=== PATIENT | female | born 1995 | race Caucasian/White ===

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

== ENCOUNTER 2017-01-19 19:45 | Emergency (ER) | payer MEDICAID ==
[~2017-01-19] VITALS: Ht 165.1 cm; Wt 108.6 kg
[2017-01-19 20:35] LABS: HCG UR LOT HCG7030192
[2017-01-19 20:42] LABS: PATH.CAST-FLAG NOT PRESENT; SPERM-FLAG NOT PRESENT; SRC-FLAG NOT PRESENT; XTAL-FLAG NOT PRESENT; YLC-FLAG NOT PRESENT
[2017-01-19 20:43] LABS: HCG UR OBC PASS
[2017-01-19] MEDS ORDERED: CEFTRIAXONE 250 MG IM ONE (21:00)
[2017-01-19] MEDS ORDERED: AZITHROMYCIN 500 MG TABLET PO ONE (21:00)
[2017-01-19] MEDS ORDERED: AZITHROMYCIN 500 MG TABLET ONE (21:10)
[2017-01-19 21:29] VITALS: BP 115/66
== END 2017-01-19 21:30 | disposition home or self-care (01) ==
LOC: ED 20:35
DX: A59.01 Trichomonal vulvovaginitis (principal)
CPT/HCPCS: 81001; 81025; 87086; 87210; 87491; 87591; 87808; 96372; 99284; J0696

== ENCOUNTER 2017-01-22 12:15 | Emergency (ER) | payer MEDICAID ==
[~2017-01-22] VITALS: Ht 165.1 cm; Wt 108.2 kg
[2017-01-22 12:20] VITALS: BP 112/72
== END 2017-01-22 13:24 | disposition home or self-care (01) ==
LOC: ED 12:30
DX: A60.00 Herpesviral infection of urogenital system, unspecified (principal); E66.9 Obesity, unspecified
CPT/HCPCS: 99283

== ENCOUNTER 2017-05-07 16:02 | Emergency (ER) | payer MEDICAID ==
[~2017-05-07] VITALS: Ht 165.1 cm; Wt 104.5 kg
[2017-05-07 16:03] VITALS: BP 113/83
[2017-05-07] MEDS ORDERED: DIAZEPAM 5 MG TABLET ONE (16:30)
[2017-05-07] MEDS ORDERED: DIAZEPAM 5 MG TABLET PO ONE (16:30)
[2017-05-07] MEDS ORDERED: IBUPROFEN 200 MG TABLET PO ONE (16:30)
[2017-05-07] MEDS ORDERED: IBUPROFEN 200 MG TABLET ONE (16:30)
== END 2017-05-07 17:11 | disposition home or self-care (01) ==
LOC: ED 17:00
DX: S39.012A Strain of muscle, fascia and tendon of lower back, initial encounter (principal); E66.9 Obesity, unspecified; W01.0XXA Fall on same level from slipping, tripping and stumbling without subsequent striking against object, initial encounter; Y93.89 Activity, other specified; Y92.89 Other specified places as the place of occurrence of the external cause; Y99.8 Other external cause status
CPT/HCPCS: 72110; 99284

== ENCOUNTER 2017-06-06 14:08 | Emergency (ER) | payer MEDICAID, OTHER ==
[~2017-06-06] VITALS: Ht 167.6 cm; Wt 116.7 kg
[2017-06-06 14:09] VITALS: BP 114/76
== END 2017-06-06 15:11 | disposition home or self-care (01) ==
LOC: ED 15:02
DX: B34.9 Viral infection, unspecified (principal)
CPT/HCPCS: 71046; 93005; 99284

== ENCOUNTER 2017-07-05 11:10 | Emergency (ER) | payer MEDICAID, OTHER ==
[~2017-07-05] VITALS: Ht 165.1 cm; Wt 118.7 kg
[2017-07-05 11:13] VITALS: BP 119/79
== END 2017-07-05 12:49 | disposition home or self-care (01) ==
LOC: ED 12:20
DX: S93.492A Sprain of other ligament of left ankle, initial encounter (principal); X50.1XXA Overexertion from prolonged static or awkward postures, initial encounter; Y93.89 Activity, other specified; Y92.099 Unspecified place in other non-institutional residence as the place of occurrence of the external cause; Y99.8 Other external cause status
CPT/HCPCS: 99284

== ENCOUNTER 2017-11-02 22:33 | Emergency (ER) | payer MEDICAID ==
[~2017-11-02] VITALS: Ht 165.1 cm; Wt 129.1 kg
[2017-11-02 22:36] VITALS: BP 128/81
[2017-11-02 23:18] LABS: BASOPHILS # (AUTO) 0.05 x10^3/uL (0-0.3); BASOPHILS % (AUTO) 1 % (0-1); EOSINOPHILS % (AUTO) 1 % (1-7); LYMPHOCYTES # (AUTO) 2.89 x10^3/uL (1-6.1); LYMPHOCYTES % (AUTO) 28 % (22-44); MD NO; MEAN CORPUSCULAR HEMOGLOBIN 25.9 pg (27.0-34.8); MEAN CORPUSCULAR VOLUME 78.3 fL (80-100); MONOCYTES # (AUTO) 0.68 x10^3/uL (0-1.4); MONOCYTES % (AUTO) 7 % (2-9); NEUTROPHILS # (AUTO) 6.62 x10^3/uL (1.8-8.0); NEUTROPHILS % (AUTO) 64 % (42-75); PLATELET COUNT 305 x10^3/uL (130-400); RED CELL DISTRIBUTION WIDTH 14.5 % (9.6-15.2)
[2017-11-02 23:25] LABS: ALANINE AMINOTRANSFERASE 22 U/L (12-78); ALBUMIN 3.1 g/dL (3.4-5.0); ANION GAP 6 mmol/L (5-15); CALCIUM 8.4 mg/dL (8.5-10.1); CHLORIDE 109 mmol/L (98-107)
[2017-11-02 23:30] LABS: ALKALINE PHOSPHATASE 75 U/L (45-117); BILIRUBIN,TOTAL 0.3 mg/dL (0.2-1.0); TOTAL PROTEIN 6.7 g/dL (6.4-8.2)
[2017-11-02 23:44] LABS: MICROSCOPIC NOT IND
[2017-11-02 23:47] LABS: CULTURE INDICATED? NO
== END 2017-11-03 02:02 | disposition home or self-care (01) ==
LOC: ED 11-03 01:08
DX: O26.891 Other specified pregnancy related conditions, first trimester (principal); R10.30 Lower abdominal pain, unspecified; E66.01 Morbid (severe) obesity due to excess calories; Z3A.01 Less than 8 weeks gestation of pregnancy; Z86.718 Personal history of other venous thrombosis and embolism; Z90.89 Acquired absence of other organs; Z68.42 Body mass index [BMI] 45.0-49.9, adult
CPT/HCPCS: 36415; 76830; 80053; 81003; 84702; 84703; 85025; 99285

== ENCOUNTER 2017-12-30 21:24 | Emergency (ER) | payer MEDICAID ==
[~2017-12-30] VITALS: Ht 165.1 cm; Wt 127.8 kg
[2017-12-30 21:49] LABS: BASOPHILS # (AUTO) 0.03 x10^3/uL (0-0.3); BASOPHILS % (AUTO) 0 % (0-1); EOSINOPHILS # (AUTO) 0.09 x10^3/uL (0-0.8); EOSINOPHILS % (AUTO) 1 % (1-7); LYMPHOCYTES # (AUTO) 2.78 x10^3/uL (1-6.1); LYMPHOCYTES % (AUTO) 25 % (22-44); MD NO; MEAN CORPUSCULAR HGB CONC 33.5 g/dL (32.4-35.8); MEAN CORPUSCULAR VOLUME 77.5 fL (80-100); MEAN PLATELET VOLUME 9.5 fL (7.4-10.4); MONOCYTES # (AUTO) 0.66 x10^3/uL (0-1.4); MONOCYTES % (AUTO) 6 % (2-9); NEUTROPHILS % (AUTO) 68 % (42-75); PLATELET COUNT 270 x10^3/uL (130-400); RED BLOOD COUNT 4.84 x10^6/uL (3.82-5.3); RED CELL DISTRIBUTION WIDTH 16.9 % (9.6-15.2)
[2017-12-30 22:00] LABS: ALBUMIN 3.3 g/dL (3.4-5.0); ANION GAP 9 mmol/L (5-15); CHLORIDE 108 mmol/L (98-107); CREATININE 0.71 mg/dL (0.55-1.02)
[2017-12-30 22:17] LABS: CULTURE INDICATED? YES; MICROSCOPIC INDICATED
[2017-12-30 22:18] VITALS: BP 124/78
== END 2017-12-30 23:18 | disposition home or self-care (01) ==
LOC: ED 21:57
DX: O26.891 Other specified pregnancy related conditions, first trimester (principal); Z3A.12 12 weeks gestation of pregnancy; Z86.718 Personal history of other venous thrombosis and embolism
CPT/HCPCS: 36415; 76801; 80048; 81001; 82040; 84702; 85025; 87086; 99285

== ENCOUNTER 2018-02-04 18:19 | Emergency (ER) | payer MEDICAID ==
[~2018-02-04] VITALS: Ht 165.1 cm; Wt 123.0 kg
[2018-02-04 19:34] LABS: BASOPHILS # (AUTO) 0.04 x10^3/uL (0-0.3); BASOPHILS % (AUTO) 0 % (0-1); EOSINOPHILS # (AUTO) 0.08 x10^3/uL (0-0.8); EOSINOPHILS % (AUTO) 1 % (1-7); LYMPHOCYTES # (AUTO) 1.88 x10^3/uL (1-6.1); LYMPHOCYTES % (AUTO) 20 % (22-44); MD NO; MEAN CORPUSCULAR HEMOGLOBIN 26.6 pg (27.0-34.8); MEAN CORPUSCULAR HGB CONC 33.9 g/dL (32.4-35.8); MEAN CORPUSCULAR VOLUME 78.4 fL (80-100); MEAN PLATELET VOLUME 10.7 fL (7.4-10.4); MONOCYTES # (AUTO) 0.56 x10^3/uL (0-1.4); MONOCYTES % (AUTO) 6 % (2-9); NEUTROPHILS # (AUTO) 6.78 x10^3/uL (1.8-8.0); NEUTROPHILS % (AUTO) 73 % (42-75); PLATELET COUNT 235 x10^3/uL (130-400); RED BLOOD COUNT 4.89 x10^6/uL (3.82-5.3); RED CELL DISTRIBUTION WIDTH 16.4 % (9.6-15.2)
[2018-02-04 19:49] LABS: ALBUMIN 3.1 g/dL (3.4-5.0); ANION GAP 9 mmol/L (5-15); CALCIUM 9.2 mg/dL (8.5-10.1); CHLORIDE 106 mmol/L (98-107); CREATININE 0.69 mg/dL (0.55-1.02)
[2018-02-04 20:23] VITALS: BP 121/71
== END 2018-02-04 21:02 | disposition home or self-care (01) ==
LOC: ED 20:51
DX: O20.0 Threatened abortion (principal); Z86.718 Personal history of other venous thrombosis and embolism
CPT/HCPCS: 36415; 76815; 80048; 82040; 84702; 85025; 86901; 99284; 99285

== ENCOUNTER 2018-03-04 19:18 | Outpatient (CLI) | payer MEDICAID ==
[~2018-03-04] VITALS: Ht 165.1 cm; Wt 122.9 kg
[2018-03-04 20:12] LABS: MICROSCOPIC AUTO
== END 2018-03-04 21:30 | disposition home or self-care (01) ==
LOC: LDOP 19:18
PROVIDERS: ATTEND Obstetrics & Gynecology
DX: O26.892 Other specified pregnancy related conditions, second trimester (principal); R10.9 Unspecified abdominal pain; Z3A.18 18 weeks gestation of pregnancy
CPT/HCPCS: 59025; 76770; 76815; 81001; 87086; 99201; G0463

== ENCOUNTER 2018-04-04 06:11 | Emergency (ER) | payer MEDICAID ==
[~2018-04-04] VITALS: Ht 165.1 cm; Wt 125.7 kg
--- NOTE | 2018-04-04 06:35 | NUR ---
L[facility]D MARBIN WREN CAME TO ASSESS PT.
[2018-04-04] MEDS ORDERED: PREN1TAB10 PO (06:38)
[2018-04-04 06:55] VITALS: BP 121/67
== END 2018-04-04 07:04 | disposition home or self-care (01) ==
LOC: ED 06:57
DX: J20.8 Acute bronchitis due to other specified organisms (principal); B97.89 Other viral agents as the cause of diseases classified elsewhere; Z86.718 Personal history of other venous thrombosis and embolism; O99.512 Diseases of the respiratory system complicating pregnancy, second trimester; Z3A.26 26 weeks gestation of pregnancy
CPT/HCPCS: 99281

== ENCOUNTER 2018-05-05 15:31 | Observation (INO) | payer MEDICAID ==
[~2018-05-05] VITALS: Ht 165.1 cm; Wt 124.5 kg
[~2018-05-05 15:31] MED LIST: PREN1TAB10 PO
[2018-05-05 15:49] VITALS: BP 121/68
== END 2018-05-05 23:20 | disposition home or self-care (01) ==
LOC: LDOP 15:31 → LDIP 17:40
PROVIDERS: ADMIT Obstetrics & Gynecology; ATTEND Obstetrics & Gynecology
DX: O36.8130 Decreased fetal movements, third trimester, not applicable or unspecified (principal); Z3A.30 30 weeks gestation of pregnancy
CPT/HCPCS: 59025; 76805; 76819; 81003; G0378

== ENCOUNTER 2018-05-12 20:04 | Outpatient (CLI) | payer MEDICAID ==
[~2018-05-12] VITALS: Ht 165.1 cm; Wt 125.9 kg
[2018-05-12 20:15] VITALS: BP 133/81
[2018-05-12 20:40] LABS: MICROSCOPIC INDICATED
[2018-05-12] MEDS ORDERED: TERBUTALINE 1 MG/ML, 1ML ONE (20:56)
[2018-05-12] MEDS ORDERED: TERBUTALINE 1 MG/ML, 1ML SQ PRN (21:00)
== END 2018-05-12 23:15 | disposition home or self-care (01) ==
LOC: LDOP 20:04
PROVIDERS: ATTEND Obstetrics & Gynecology
DX: O26.893 Other specified pregnancy related conditions, third trimester (principal); R10.9 Unspecified abdominal pain; Z3A.31 31 weeks gestation of pregnancy
CPT/HCPCS: 59025; 81001; 87086; 96372; 99211; J3105; G0463

== ENCOUNTER 2018-05-23 11:40 | Outpatient (CLI) | payer MEDICAID ==
[~2018-05-23] VITALS: Ht 165.1 cm; Wt 127.7 kg
[2018-05-23 12:54] VITALS: BP 121/63
== END 2018-05-23 13:25 | disposition home or self-care (01) ==
LOC: LDOP 11:40
PROVIDERS: ATTEND Obstetrics & Gynecology
DX: O36.5930 Maternal care for other known or suspected poor fetal growth, third trimester, not applicable or unspecified (principal); Z3A.33 33 weeks gestation of pregnancy
CPT/HCPCS: 59025; 76819; 99211; G0463

== ENCOUNTER 2018-06-22 16:24 | Outpatient (CLI) | payer MEDICAID ==
[~2018-06-22] VITALS: Ht 165.1 cm; Wt 125.0 kg
[2018-06-22 18:54] LABS: MICROSCOPIC INDICATED
[2018-06-30] MEDS ORDERED: OXYC-302 PO (13:35)
[2018-06-30] MEDS ORDERED: IBUP-1222 PO (13:35)
[2018-06-30] MEDS ORDERED: SENN-52 PO (13:36)
[2018-06-30] MEDS ORDERED: SIME80TA15 PO (13:37)
[2018-06-30] MEDS ORDERED: FERR324T18 PO (13:37)
== END 2018-06-22 19:58 | disposition home or self-care (01) ==
LOC: LDOP 16:24
PROVIDERS: ATTEND Obstetrics & Gynecology
DX: O26.892 Other specified pregnancy related conditions, second trimester (principal); R10.9 Unspecified abdominal pain; Z3A.37 37 weeks gestation of pregnancy
CPT/HCPCS: 59025; 81001; 99211; G0463

== ENCOUNTER 2018-06-24 09:03 | Observation (INO) | payer MEDICAID ==
[~2018-06-24] VITALS: Ht 165.1 cm; Wt 125.0 kg
[2018-06-24 09:30] VITALS: BP 121/68
[2018-06-24 09:56] LABS: AMPHETAMINE SCREEN, URINE Negative (Negative); BARBITURATE SCREEN, URINE Negative (Negative); BENZODIAZEPINE SCREEN, URINE Negative (Negative); CANNABINOID SCREEN, URINE Negative (Negative); COCAINE SCREEN, URINE Negative (Negative); METHADONE SCREEN, URINE Negative (Negative); OPIATE SCREEN, URINE Negative (Negative)
[2018-06-24 10:00] LABS: MICROSCOPIC INDICATED
[2018-06-24 11:28] LABS: ALANINE AMINOTRANSFERASE 13 U/L (12-78); ALBUMIN 2.5 g/dL (3.4-5.0); ANION GAP 10 mmol/L (5-15); CALCIUM 8.8 mg/dL (8.5-10.1); CHLORIDE 108 mmol/L (98-107); CREATININE 0.73 mg/dL (0.55-1.02)
[2018-06-24 11:30] LABS: BILIRUBIN, DIRECT < 0.1 mg/dL (0.1-0.2)
[2018-06-24 11:34] LABS: ALKALINE PHOSPHATASE 197 U/L (45-117); BILIRUBIN,TOTAL 0.2 mg/dL (0.2-1.0); TOTAL PROTEIN 6.5 g/dL (6.4-8.2)
[2018-06-24 11:53] LABS: BASOPHILS # (AUTO) 0.02 x10^3/uL (0-0.1); BASOPHILS % (AUTO) 0 % (0-1); EOSINOPHILS # (AUTO) 0.03 x10^3/uL (0-0.4); EOSINOPHILS % (AUTO) 0 % (1-7); LYMPHOCYTES # (AUTO) 1.62 x10^3/uL (1-3.4); LYMPHOCYTES % (AUTO) 20 % (22-44); MD SCAN; MEAN CORPUSCULAR HEMOGLOBIN 23.4 pg (27.0-34.8); MEAN CORPUSCULAR HGB CONC 31.9 g/dL (32.4-35.8); MEAN CORPUSCULAR VOLUME 73.3 fL (80-100); MEAN PLATELET VOLUME 11.7 fL (7.4-10.4); MONOCYTES # (AUTO) 0.56 x10^3/uL (0.2-0.8); MONOCYTES % (AUTO) 7 % (2-9); NEUTROPHILS # (AUTO) 5.79 x10^3/uL (1.8-6.8); NEUTROPHILS % (AUTO) 72 % (42-75); PLATELET COUNT 210 x10^3/uL (130-400); RED CELL DISTRIBUTION WIDTH 15.6 % (9.6-15.2)
[2018-06-24] MEDS ORDERED: VALA500T4 PO (12:12)
== END 2018-06-24 12:27 | disposition home or self-care (01) ==
LOC: LDOP 09:03 → LDIP 09:04
PROVIDERS: ADMIT Obstetrics & Gynecology Maternal & Fetal Medicine; ATTEND Obstetrics & Gynecology Maternal & Fetal Medicine
DX: O62.9 Abnormality of forces of labor, unspecified (principal); Z3A.38 38 weeks gestation of pregnancy; Z79.899 Other long term (current) drug therapy
CPT/HCPCS: 36415; 59025; 80053; 80307; 81001; 82248; 82570; 84156; 84550; 85025; 99211; G0378; G0463

== ENCOUNTER 2018-07-10 19:47 | Inpatient (IN) | payer MEDICAID ==
[~2018-07-10] VITALS: Ht 165.1 cm; Wt 121.7 kg
[~2018-07-10 19:47] MED LIST changes: +FERR324T18 PO; +IBUP-1222 PO; +OXYC-302 PO; +SENN-52 PO; +SIME80TA15 PO; +VALA500T4 PO
--- NOTE | 2018-07-10 20:10 | NUR ---
pt to ed for intermittent mid-upper back pain radiatingt o epigastric area x3 days. hx csection june 27, 2018. connected to monitors. vss. no needs expressed. awaiting edmd assessment.
[2018-07-10] MEDS ORDERED: ONDANSETRON 2MG/ML, 2ML ONE (20:46)
[2018-07-10] MEDS ORDERED: MORPHINE SULFATE 4 MG/ML, 1ML ONE (20:47)
[2018-07-10 20:48] LABS: BASOPHILS # (AUTO) 0.06 x10^3/uL (0-0.1); BASOPHILS % (AUTO) 0 % (0-1); EOSINOPHILS # (AUTO) 0.29 x10^3/uL (0-0.4); EOSINOPHILS % (AUTO) 2 % (1-7); LYMPHOCYTES # (AUTO) 1.76 x10^3/uL (1-3.4); LYMPHOCYTES % (AUTO) 11 % (22-44); MD NO; MEAN CORPUSCULAR HEMOGLOBIN 23.7 pg (27.0-34.8); MEAN CORPUSCULAR HGB CONC 32.2 g/dL (32.4-35.8); MEAN CORPUSCULAR VOLUME 73.7 fL (80-100); MEAN PLATELET VOLUME 10.2 fL (7.4-10.4); MONOCYTES # (AUTO) 0.53 x10^3/uL (0.2-0.8); MONOCYTES % (AUTO) 3 % (2-9); NEUTROPHILS # (AUTO) 12.87 x10^3/uL (1.8-6.8); NEUTROPHILS % (AUTO) 83 % (42-75); PLATELET COUNT 375 x10^3/uL (130-400); RED BLOOD COUNT 5.27 x10^6/uL (3.82-5.3); RED CELL DISTRIBUTION WIDTH 16.1 % (9.6-15.2)
[2018-07-10 20:54] LABS: MICROSCOPIC INDICATED
[2018-07-10 20:55] LABS: CULTURE INDICATED? YES
[2018-07-10] MEDS ORDERED: ONDANSETRON 2MG/ML, 2ML IVPush ONE (21:00)
[2018-07-10] MEDS ORDERED: MORPHINE SULFATE 4 MG/ML, 1ML IVPush PRN (21:00)
[2018-07-10] MEDS ORDERED: SODIUM CHLORIDE FLUSH 10ML SYR IVF ONE (21:00)
[2018-07-10 21:01] LABS: ALANINE AMINOTRANSFERASE 38 U/L (12-78); ALBUMIN 3.6 g/dL (3.4-5.0); ANION GAP 8 mmol/L (5-15); CALCIUM 9.1 mg/dL (8.5-10.1); CHLORIDE 106 mmol/L (98-107); CREATININE 1.25 mg/dL (0.55-1.02)
--- NOTE | 2018-07-10 21:05 | NUR ---
PT TO US
[2018-07-10 21:06] LABS: ALKALINE PHOSPHATASE 211 U/L (45-117); BILIRUBIN,TOTAL 0.4 mg/dL (0.2-1.0)
--- NOTE | 2018-07-10 21:30 | NUR ---
pt back from us at this time. vss. pt medicated per mar. no other requests. awaiting resutls.
--- NOTE | 2018-07-10 22:09 | NUR ---
ASSUMED CARE OF PATIENT. NO ACUTE DISTRESS NOTED. CALL LIGHT IN PLACE. WILL CONTINUE TO MONITOR.
--- NOTE | 2018-07-10 22:15 | NUR ---
DR VINCENT HAS UPDATED PATIENT.
[2018-07-10] MEDS ORDERED: CEFOTETAN PMX 1GM/50ML 50 ML IV ONE (22:30)
--- NOTE | 2018-07-10 22:41 | NUR ---
NO BLOOD CULTURES NEEDED PER HENRIETTA Garcia DIRECTOR MEDICAL
[2018-07-10] MEDS ORDERED: CEFOTETAN PMX 1GM/50ML 50 ML ONE (22:43)
[2018-07-10 23:15] VITALS: BP 113/76
[2018-07-11] MEDS: LACTATED RINGERS 1,000 ML IV SCH ×3 (00:12→20:00)
[2018-07-11 02:04] VITALS: BP 128/76
[2018-07-11] MEDS: MORPHINE SULFATE 4 MG/ML, 1ML IVPush PRN ×3 (06:37→20:31)
[2018-07-11] MEDS: ONDANSETRON 2MG/ML, 2ML IVPush PRN ×2 (06:48→14:42)
[2018-07-11 07:02] VITALS: BP 94/61
[2018-07-11 12:39] VITALS: BP 95/63
[2018-07-11] MEDS ORDERED: BUPIVACAINE/PF-EPI 0.5% 1:200K ONE (17:11)
[2018-07-11] MEDS ORDERED: THROMBIN 5,000 UNIT VIAL TP ONE (17:11)
[2018-07-11] MEDS ORDERED: MIDAZOLAM 1 MG/ML, 2ML ONE (18:16)
[2018-07-11] MEDS ORDERED: FENTANYL PF 250 MCG/5ML ONE (18:17)
[2018-07-11] MEDS ORDERED: PHENYLEPHRINE 10 MG/ML ONE (18:18)
[2018-07-11] MEDS ORDERED: CEFOTETAN PMX 2GM/50ML 50 ML IVPB ONE (18:18)
[2018-07-11] MEDS ORDERED: ONDANSETRON 2MG/ML, 2ML ONE (18:18)
[2018-07-11] MEDS ORDERED: PROPOFOL 10 MG/ML, 20ML ONE (18:18)
[2018-07-11] MEDS ORDERED: DEXAMETHASONE 4 MG/ML, 1ML ONE (18:18)
[2018-07-11] MEDS ORDERED: GLYCOPYRROLATE 0.2MG/1ML, 5ML ONE (18:18)
[2018-07-11] MEDS ORDERED: ROCURONIUM 10 MG/ML,10ML ONE (18:18)
[2018-07-11] MEDS ORDERED: SUCCINYLCHOLINE 20 MG/ML, 10ML ONE (18:18)
[2018-07-11] MEDS ORDERED: PROMETHAZINE 25 MG/ML, 1ML IV PRN (19:00)
[2018-07-11] MEDS ORDERED: hydrALAzine 20 MG/ML, 1ML IV PRN (19:00)
[2018-07-11] MEDS ORDERED: MORPHINE SULFATE 4 MG/ML, 1ML IVPush PRN (19:00)
[2018-07-11] MEDS ORDERED: MEPERIDINE/PF 25MG/0.5ML IVPush PRN (19:00)
[2018-07-11] MEDS ORDERED: ACETAMINOPHEN 325 MG TABLET PO PRN ×2 (19:00)
[2018-07-11] MEDS ORDERED: HYDROmorphone 2 MG/ML, 1ML IVPush PRN (19:00)
[2018-07-11] MEDS ORDERED: MIDAZOLAM 1 MG/ML, 2ML IV PRN (19:00)
[2018-07-11] MEDS ORDERED: HALOPERIDOL 5 MG/ML IV PRN (19:00)
[2018-07-11] MEDS ORDERED: LABETALOL 5MG/ML, 20ML IV PRN (19:00)
[2018-07-11] MEDS ORDERED: OXYcodone 5 MG/5 ML ORAL.SOL UDC PO PRN (19:00)
[2018-07-11] MEDS ORDERED: FENTANYL PF 100 MCG/2ML IV PRN (19:00)
[2018-07-11] MEDS ORDERED: DIAZEPAM 5 MG/ML, 2ML IVPush PRN (19:00)
[2018-07-11] MEDS ORDERED: ONDANSETRON ODT 8 MG PO PRN (19:00)
[2018-07-11] MEDS ORDERED: EPHEDRINE 50 MG/ML, 1ML IVPush PRN (19:00)
[2018-07-11] MEDS ORDERED: PROMETHAZINE 12.5 MG SUPP PR PRN (19:00)
[2018-07-11] MEDS ORDERED: ALBUTEROL SULFATE 2.5 MG/3 ML NPPB PRN (19:00)
[2018-07-11] MEDS ORDERED: ONDANSETRON 2MG/ML, 2ML IV PRN (19:00)
[2018-07-11] MEDS ORDERED: FENTANYL PF 100 MCG/2ML ONE (19:15)
[2018-07-11] MEDS ORDERED: OXYcodone 5 MG/5 ML ORAL.SOL UDC ONE (19:15)
[2018-07-11] MEDS ORDERED: HYDR-3237 PO (20:12)
[2018-07-11] MEDS ORDERED: POLY119P4 PO (20:20)
[2018-07-11] MEDS ORDERED: HYDROcodone/APAP 5/325 TABLET PO PRN (20:30)
[2018-07-11 21:36] VITALS: BP 108/62
== END 2018-07-11 22:06 | disposition home or self-care (01) | DRG 418 ==
LOC: ED 22:10 → EDIP 22:15 → 4NOR 23:00
PROVIDERS: ADMIT Colon & Rectal Surgery; ATTEND Colon & Rectal Surgery
PROC: 0FT44ZZ Resection of Gallbladder, Percutaneous Endoscopic Approach (ICD-10-PCS; principal; 2018-07-11 19:00)
DX: K80.00 Calculus of gallbladder with acute cholecystitis without obstruction (principal); Z68.41 Body mass index [BMI] 40.0-44.9, adult; E66.9 Obesity, unspecified; N30.90 Cystitis, unspecified without hematuria; Z90.89 Acquired absence of other organs; Z79.899 Other long term (current) drug therapy
CPT/HCPCS: 36415; 76700; 80053; 81001; 83690; 84703; 85025; 87086; 88304; 93005; 96374; 96375; G0378; J1100; J2250; J2405; J2704; J3010; J0330; J2370; J3490; J7120

== ENCOUNTER 2019-03-07 01:54 | Emergency (ER) | payer MEDICAID ==
[~2019-03-07] VITALS: Ht 165.1 cm; Wt 115.0 kg
[~2019-03-07 01:54] MED LIST changes: +HYDR-3237 PO; +POLY119P4 PO
--- NOTE | 2019-03-07 03:29 | NUR ---
pt to room from lobby
[2019-03-07] MEDS ORDERED: MORPHINE SULFATE 4 MG/ML, 1ML IVPush PRN (04:00)
[2019-03-07] MEDS ORDERED: ONDANSETRON 2MG/ML, 2ML IVPush ONE (04:00)
[2019-03-07] MEDS ORDERED: SODIUM CHLORIDE 0.9% 1,000ML IVBOLUS ONE (04:00)
[2019-03-07] MEDS ORDERED: MORPHINE SULFATE 4 MG/ML, 1ML ONE (04:00)
[2019-03-07] MEDS ORDERED: SODIUM CHLORIDE FLUSH 10ML SYR IVF ONE (04:00)
[2019-03-07] MEDS ORDERED: ONDANSETRON 2MG/ML, 2ML ONE (04:00)
[2019-03-07 04:13] LABS: CULTURE INDICATED? YES; MICROSCOPIC INDICATED
[2019-03-07 04:20] LABS: AMPHETAMINE SCREEN, URINE Negative (Negative); BARBITURATE SCREEN, URINE Negative (Negative); BENZODIAZEPINE SCREEN, URINE Negative (Negative); CANNABINOID SCREEN, URINE Negative (Negative); COCAINE SCREEN, URINE Negative (Negative); METHADONE SCREEN, URINE Negative (Negative); OPIATE SCREEN, URINE Negative (Negative)
[2019-03-07 04:31] LABS: ALBUMIN 4.2 g/dL (3.4-5.0); ANION GAP 18 mmol/L (5-15); CALCIUM 9.7 mg/dL (8.5-10.1); CHLORIDE 103 mmol/L (98-107)
[2019-03-07 04:35] LABS: BASOPHILS # (AUTO) 0.03 x10^3/uL (0-0.1); BASOPHILS % (AUTO) 0 % (0-1); EOSINOPHILS # (AUTO) 0.03 x10^3/uL (0-0.4); EOSINOPHILS % (AUTO) 0 % (1-7); LYMPHOCYTES % (AUTO) 13 % (22-44); MD NO; MEAN CORPUSCULAR HEMOGLOBIN 25.5 pg (27.0-34.8); MEAN CORPUSCULAR HGB CONC 32.3 g/dL (32.4-35.8); MEAN CORPUSCULAR VOLUME 78.8 fL (80-100); MEAN PLATELET VOLUME 12.2 fL (7.4-10.4); MONOCYTES # (AUTO) 0.69 x10^3/uL (0.2-0.8); MONOCYTES % (AUTO) 8 % (2-9); NEUTROPHILS # (AUTO) 6.33 x10^3/uL (1.8-6.8); NEUTROPHILS % (AUTO) 77 % (42-75); PLATELET COUNT 214 x10^3/uL (130-400); RED BLOOD COUNT 5.75 x10^6/uL (3.82-5.3); RED CELL DISTRIBUTION WIDTH 21.3 % (9.6-15.2)
[2019-03-07 04:37] LABS: ALANINE AMINOTRANSFERASE 53 U/L (12-78); ALKALINE PHOSPHATASE 91 U/L (45-117); BILIRUBIN,TOTAL 1.6 mg/dL (0.2-1.0); CREATININE 1.16 mg/dL (0.55-1.02); TOTAL PROTEIN 8.3 g/dL (6.4-8.2)
[2019-03-07] MEDS ORDERED: OMNIPAQUE 350 MG/ML, 100ML BOTTLE ONE (05:20)
[2019-03-07 06:17] VITALS: BP 101/52
== END 2019-03-07 06:19 | disposition home or self-care (01) ==
LOC: ED 06:02
DX: K29.00 Acute gastritis without bleeding (principal); R11.2 Nausea with vomiting, unspecified; Z90.89 Acquired absence of other organs
CPT/HCPCS: 36415; 74177; 80053; 80307; 81001; 83690; 84702; 85025; 87086; 96361; 96374; 96375; 99284; J2270; J2405; J7030; Q9967

== ENCOUNTER 2019-09-19 05:50 | Emergency (ER) | payer MEDICAID ==
[~2019-09-19] VITALS: Ht 165.1 cm; Wt 112.0 kg
[2019-09-19 05:51] VITALS: BP 126/72
--- NOTE | 2019-09-19 06:53 | NUR ---
BEDSIDE REPORT FROM NATALI RN, RN AT BEDSIDE TO ASSIST WITH PELVIC EXAM
[2019-09-19 07:57] LABS: CLUE CELLS NONE SEEN (NONE SEEN); WET PREP WBCS MODERATE (FEW)
[2019-09-19 08:23] LABS: MICROSCOPIC AUTO
[2019-09-19] MEDS ORDERED: metroNIDAZOLE 500 MG TABLET PO ONE (08:30)
[2019-09-19] MEDS ORDERED: metroNIDAZOLE 500 MG TABLET ONE (08:47)
== END 2019-09-19 09:12 | disposition home or self-care (01) ==
LOC: ED 09:01
DX: A59.09 Other urogenital trichomoniasis (principal); N30.01 Acute cystitis with hematuria; N89.8 Other specified noninflammatory disorders of vagina; Z90.89 Acquired absence of other organs; Z86.718 Personal history of other venous thrombosis and embolism
CPT/HCPCS: 81001; 87086; 87210; 87491; 87591; 87808; 99284

== ENCOUNTER 2019-11-10 20:14 | Emergency (ER) | payer MEDICAID ==
[~2019-11-10] VITALS: Ht 165.1 cm; Wt 113.0 kg
[2019-11-10 20:24] VITALS: BP 123/75
[2019-11-10] MEDS ORDERED: DEXAMETHASONE 4 MG TABLET PO ONE (21:30)
[2019-11-10] MEDS ORDERED: DEXAMETHASONE 4 MG TABLET ONE (21:36)
--- NOTE | 2019-11-10 21:55 | NUR ---
DC EDUCATION PROVIDED, PT DEMONSTRATES UNDERSTANDING. PT AMBULATED STEADILY TO DC WITH RN
== END 2019-11-10 21:58 | disposition home or self-care (01) ==
LOC: ED 21:41
DX: J02.8 Acute pharyngitis due to other specified organisms (principal); B97.89 Other viral agents as the cause of diseases classified elsewhere; Z86.718 Personal history of other venous thrombosis and embolism
CPT/HCPCS: 99283

== ENCOUNTER 2019-12-09 13:38 | Emergency (ER) | payer MEDICAID ==
[~2019-12-09] VITALS: Ht 165.1 cm; Wt 113.2 kg
[2019-12-09 13:45] VITALS: BP 142/72
[2019-12-09] MEDS ORDERED: PHENAZOPYRIDINE 200 MG TABLET PO ONE (14:00)
[2019-12-09] MEDS ORDERED: PHENAZOPYRIDINE 200 MG TABLET ONE (14:29)
--- NOTE | 2019-12-09 14:39 | NUR ---
ERWIN TAKEN TO LAB. PT MEDICATED PER EMAR.
[2019-12-09 14:46] LABS: MICROSCOPIC AUTO
== END 2019-12-09 16:06 | disposition home or self-care (01) ==
LOC: ED 14:13
DX: N30.00 Acute cystitis without hematuria (principal); M54.5 Low back pain; Z86.711 Personal history of pulmonary embolism; Z90.89 Acquired absence of other organs
CPT/HCPCS: 81001; 87086; 99283